=== PATIENT | female | born 1995 | race Caucasian/White ===

== ENCOUNTER 2020-08-19 18:02 | Emergency (ER) | payer SELFPAY ==
[~2020-08-19] VITALS: Ht 165.1 cm; Wt 89.4 kg
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
[2020-08-19 18:27] VITALS: BP 123/74
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
--- NOTE | 2020-08-19 19:00 | NUR ---
ED Nurse Note: Pt back from Ct. No acute distress noted.
--- NOTE | 2020-08-19 19:03 | NUR ---
HAND-OFF: Report given to MARIO ALBERTO Ocampo. Pt in stable condition; plan of care endorsed.
[2020-08-19 19:09] VITALS: BP 129/78
--- NOTE | 2020-08-19 19:09 | NUR ---
ED Nurse Note: Pt cleared by health care Provider for discharge. DC instructions were given and explained to pt and verbalized understanding of teachings. All medical deviecs such as ID band removed. Pt is AAO x4, ambulatory and left with all personal belongings.
--- NOTE | 2020-08-20 06:20 | Diagnostic Imaging Report ---
EXAM: CT Head Without Intravenous Contrast CLINICAL HISTORY: INJ TECHNIQUE: Axial computed tomography images of the head/brain without intravenous contrast. CTDI is 53.4 mGy and DLP is 992.1 mGy-cm. One or more of the following dose reduction techniques were used: automated exposure control, adjustment of the mA and/or kV according to patient size, use of iterative reconstruction technique. COMPARISON: No relevant prior studies available. FINDINGS: Brain: Unremarkable. No hemorrhage. No significant white matter disease. No edema. Ventricles: Unremarkable. No ventriculomegaly. Bones/joints: Postsurgical changes of the calvarium, most prominent involving the right frontal bone. No acute fracture. Soft tissues: Unremarkable. Sinuses: Unremarkable as visualized. No acute sinusitis. Mastoid air cells: Unremarkable as visualized. No mastoid effusion. IMPRESSION: No acute intracranial abnormality.
== END 2020-08-19 19:09 | disposition home or self-care (01) ==
LOC: EMR 18:28
DX: S09.90XA Unspecified injury of head, initial encounter (principal); V43.52XA Car driver injured in collision with other type car in traffic accident, initial encounter; Y92.410 Unspecified street and highway as the place of occurrence of the external cause; Z91.040 Latex allergy status
CPT/HCPCS: 70450; 99284